=== PATIENT | female | born 1985 | race Two or more races ===

== ENCOUNTER 2019-10-31 20:33 | Emergency (ER) | payer SELFPAY ==
[~2019-10-31] VITALS: Ht 165.1 cm; Wt 54.4 kg
[2019-10-31] MEDS ORDERED: FENTANYL PF 100MCG/2ML AMPUL ONE (21:37)
[2019-10-31] MEDS ORDERED: MIDAZOLAM HCL 5 MG/5ML VIAL ONE (21:37)
[2019-10-31] MEDS: MIDAZOLAM HCL 2 MG/2ML VIAL IV ONE (21:45)
[2019-10-31] MEDS: FENTANYL PF 100MCG/2ML AMPUL IV ONE (21:45)
[2019-10-31 23:07] VITALS: BP 124/84
[2019-10-31] MEDS ORDERED: IBUPROFEN 400 MG TABLET PO ONE (23:30)
[2019-10-31] MEDS ORDERED: IV NS 0.9% 500 ML IV ONE (23:30)
[2019-10-31] MEDS ORDERED: ACETAMINOPHEN ES 500 MG TABLET PO ONE (23:30)
== END 2019-10-31 23:07 | disposition home or self-care (01) ==
LOC: ER 20:37
DX: S03.03XA Dislocation of jaw, bilateral, initial encounter (principal); R94.31 Abnormal electrocardiogram [ECG] [EKG]; X58.XXXA Exposure to other specified factors, initial encounter; Y93.89 Activity, other specified; Y92.89 Other specified places as the place of occurrence of the external cause; Y99.8 Other external cause status
CPT/HCPCS: 36415; 70110-TC; 84702-TC; G0500; J2250; J3010; J7030